=== PATIENT | male | born 1935 | race Caucasian/White ===

== ENCOUNTER → 2017-02-19 14:02 | Outpatient (CLI) | payer MEDICARE, OTHER ==
[~2017-02-19 14:02] MED LIST: AVODART0.5 MG PO; CO Q-10100 MG PO; FLOMAX0.4 MG PO; GLUCOSAMINE & C1 CAP PO; HYDROCODON-ACE1 EAC7 PO; HYDROCODONE-APA1 TAB PO; KOMBUCHA; LANOXIN125 MCG PO; LOPRESSOR25 MG PO; OREGANO OIL; VITAMIN B COMPL1 TAB PO; VITAMIN D3400 UNI1 PO; XARELTO10 MG PO; XARELTO20 MG PO; [UNRECOGNIZED DRUG - OTHER]
== END | disposition home or self-care (01) ==
LOC: D.RAD 14:02
DX: R07.81 Pleurodynia (principal)

== ENCOUNTER → 2017-02-21 13:45 | Outpatient (CLI) | payer MEDICARE, OTHER | END | disposition home or self-care (01) | LOC: D.CT 13:45 | DX: R93.8 Abnormal findings on diagnostic imaging of other specified body structures (principal) ==

== ENCOUNTER → 2017-12-20 10:18 | Outpatient (CLI) | payer MEDICARE, OTHER | END | disposition home or self-care (01) | LOC: D.CT 12-16 10:30 | DX: M54.16 Radiculopathy, lumbar region (principal) ==

== ENCOUNTER → 2018-04-28 10:44 | Outpatient (CLI) | payer MEDICARE, OTHER | END | disposition home or self-care (01) | LOC: D.US 10:44 | DX: R60.0 Localized edema (principal) ==